=== PATIENT | male | born 1945 | race Caucasian/White ===

== ENCOUNTER 2016-07-16 19:54 | Inpatient (IN) | payer MEDICARE ==
[~2016-07-16] VITALS: Ht 180.3 cm; Wt 87.3 kg
[~2016-07-16 19:54] MED LIST: ALLO300T2 PO; ASPI-973 PO; ATOR40TA69 PO; Artificial Tears BOTH_EYES; BUPR100T15 PO; CLOP75TA28 PO; FLUO20CA25 PO; FUR20 PO; HYDR-3740 PO; LOSA25TA2 PO; METO25TA6 PO; TRAZ-118 PO
[2016-07-16 20:10] VITALS: BP 94/58; PULSE 74; RESP 20; O2SAT 90
[2016-07-16 20:22] LABS: BASOPHILS % (AUTO) 0.2 % (0-3); EOSINOPHILS % (AUTO) 0.6 % (0-5); MONOCYTES % (AUTO) 10.3 % (4-12); Mean Corpuscular Hemoglobin 29.9 pg (27.0-35.0); Mean Corpuscular Volume 94.8 fL (81-100); NEUTROPHILS % (AUTO) 80.6 % (40-74); Platelet Count 170 bil/L (150-400)
--- NOTE | 2016-07-16 20:32 | ED.REPORT ---
HPI-Dyspnea / Wheezing Date of Service Jul 16, 2016 ED Provider: Jose Angel Vazquez MD 71 year old male with a history of CHF, COPD, HTN, CAD and current smoker who presents to the ED via EMS due to increased malaise over the last 4 days. Symptoms include dizziness, fever, nausea, vomiting, cough with light brown sputum, nasal congestion, headache and chronic SOB. Pt denies CP. Nursing Notes Stated Complaint: LIGHTHEADED,SOB Chief Complaint: Respiratory Distress Nursing Notes Reviewed: Yes Allergies: Coded Allergies: No Known Allergies (Verified Allergy, Unknown, 04/23/15) Scheduled Allopurinol (Allopurinol) 300 Mg Tablet 300 MG PO DAILY Aspirin (Aspirin) 81 Mg Tablet 81 MG PO DAILY Atorvastatin Calcium (Atorvastatin Calcium) 40 Mg Tablet 40 MG PO HS Bupropion (Bupropion) 100 Mg Tablet 100 MG PO BID Clopidogrel (Clopidogrel) 75 Mg Tablet 75 MG PO DAILY Fluoxetine (Fluoxetine) 20 Mg Capsule 60 MG PO DAILY Furosemide (Furosemide) 20 Mg Tab 40 MG PO DAILY Hydrocodone-Acetaminophen 10-325 mg (Hydrocodone-Acetaminophen 10-325 mg) 1 Each Tablet 2 TABLET PO Q12HRS Losartan Potassium (Cozaar) 25 Mg Tablet 25 MG PO DAILY Metoprolol Tartrate (Metoprolol Tartrate) 25 Mg Tablet 25 MG PO BID Trazodone (Trazodone) 100 Mg Tablet 100 MG PO HS Scheduled PRN ([Artificial Tears]) 15 DROP/ML SOLUTION 1 DROP BOTH_EYES Q2H PRN PRN For Eye Irritation General Time Seen by MD: 20:31 Chief Complaint Other (Malaise) Hx Obtained From: Patient, EMS Arrived By: Ambulance Onset Occurred: 4 days ago Symptom Duration: Since onset Severity: Current: No pain currently Associated with: Reports: Cough, Fever, Nausea, Vomiting, Denies: Chest pain Pertinent Negative: Relieved by nothing Past Medical History Past Medical History Notes: Patient reports O+ blood type Past Medical History 1. Coronary artery disease: a. Coronary angiogram in April 2011: RCA obstruction with collateral flow, LVEF of 30%, LED obstruction 60% to 70%. b. Stress test in April 2003: Abnormal perfusion, partially reversible but predominantly fixed. Inferior and inferolateral defect consistent with previous transmural infarction with rayne-infarct ischemia. LVEF 56%. c. Echocardiogram in March 2002: LVEF of 60%, mild diastolic dysfunction. 2. Infrarenal abdominal aortic aneurysm, 5 cm, by CT scan from August 2011. 3. Polycythemia, attributed to smoking history. 4. Hyperlipidemia, hypertriglyceridemia. 5. History of elevated LFTs. 6. Hearing loss, mild to moderate, combined sensorineural. 7. PTSD. 8. Depression. 9. Alcohol dependence. 10. Nicotine dependence. 11. Possible obstructive sleep apnea. The patient declined workup in January 2005. 12. Right foot pain associated with trauma. 13. Psoriasis. 14. Chronic mild right shoulder impingement syndrome. 15. Chronic headache. 16. Chronic obstructive pulmonary disease. 17. Gout. 18. Chronic abdominal pain. 19. Ruptured aortic valve Past Surgical History 1. Bilateral carpal tunnel in 2000. 2. Left biceps repair after tearing, status post fall in 1991. 3. Bilateral cataract surgery. Smoking History Current Every Day Smoker (1/2 PPD) Social History Alcohol Use: "Social" Drug Use: Denies drug use Other Social History: Lives in [facility], Local resident Occupation Patient is a disabled Ambulatory Status Independent Review of Systems Basic Review of Systems Eyes: Vision NL, No discharge Neurologic: NL mental status Psychiatric: Normal thought content Constitutional: Denies: Fever Ears / Nose / Throat: Reports: Nasal congestion Respiratory: Reports: Prod cough, brown, Shortness of breath (chronic) Cardiovascular: Denies: Chest pain Skin: Denies Rash Complete sys rev & neg: except as marked. GI: Reports: Nausea, Vomiting, Denies: Abdominal pain Neurologic: Reports: Dizziness, Headache, Lightheaded Physical Exam Initial Vital Signs Vital Signs (First) Date Time Temp Pulse Resp B/P Pulse Ox O2 Delivery O2 Flow Rate FiO2 07/16/16 20:10 38.1 74 20 94/58 90 Nasal Cannula 2 Initial VS: Reviewed Head / Eyes: Atraumatic, Normocephalic, PERRL ENT: Conjunctiva normal, No scleral icterus Skin: Warm, Dry, No cyanosis Neurologic: Alert, Oriented, Nonfocal Psychiatric: Mood/affect normal, Behavior normal, Normal thought content General/Constitutional: Awake, Alert Neck: Supple, Full range of motion Respiratory / Chest: No respiratory distress Coarse breath sounds bilaterally Cardiovascular: Heart rate NL, Regular rhythm, Heart sounds NL, Peripheral circulation NL Abdomen: Soft, Non-tender, No guarding, No rebound Lower Extremity / Pelvis / MS: Full range of motion, No edema Interpretation & Diagnostics Lab Results Interpretation Result Diagram: 07/16/16201207/16/16 2013 Test 07/16/16 20:13 White Blood Count 9.9th/mm3 (3.8-10.1) Red Blood Count 4.85mil/mm3 (4.40-5.80) Hemoglobin 14.5g/dL (13.8-17.2) Hematocrit 46.0% (41.0-50.0) Mean Corpuscular Volume 94.8fL (81-100) Mean Corpuscular Hemoglobin 29.9pg (27.0-35.0) Mean Corpuscular Hemoglobin Concent 31.5% (32.0-37.0) Red Cell Distribution Width 16.4% (12.3-15.4) Platelet Count 170bil/L (150-400) Neutrophils (%) (Auto) 80.6% (40-74) Lymphocytes (%) (Auto) 8.0% (14-46) Monocytes (%) (Auto) 10.3% (4-12) Eosinophils (%) (Auto) 0.6% (0-5) Basophils (%) (Auto) 0.2% (0-3) Prothrombin Time 9.8sec (8.1-12.5) Prothromb Time International Ratio 0.92ratio Activated Partial Thromboplast Time 30.6sec (22.8-33.0) Sodium Level 135mEq/L (134-144) Potassium Level 4.4mEq/L (3.5-5.2) Chloride Level 97mEq/L (97-108) Carbon Dioxide Level 22mmol/L (18-29) Blood Urea Nitrogen 19mg/dL (8-27) Creatinine 1.22mg/dL (0.76-1.27) Estimat Glomerular Filtration Rate 62mL/min (>59) Glucose Level 103mg/dL (60-99) Calcium Level 8.7mg/dL (8.5-10.1) Magnesium Level 1.8mg/dL (1.6-2.6) Total Bilirubin 0.4mg/dL (0.0-1.2) Aspartate Amino Transf (AST/SGOT) 26U/L (0-50) Alanine Aminotransferase (ALT/SGPT) 17U/L (0-44) Alkaline Phosphatase 87U/L (25-160) Troponin T < 0.010ug/L (0.0-0.011) Pro-B-Type Natriuretic Peptide 1446pg/mL (0-376) Total Protein 7.2g/dL (6.4-8.4) Albumin 3.7g/dL (3.4-5.0) Lab Results Interpretation: Flu A positive General Lab Results Interp 1: Labs reviewed ECG Interpretation Time: 20:16 Interpreted by: ED physician Normal ECG Interpretation: Normal rate (73), Normal sinus rhythm, No acute ischemic changes X-Ray Chest Interpretation Chest Xray Interpretation: IMPRESSION: Chronic interstitial changes and increased pulmonary vascularity is present. Dictated by: Ca Bedolla M.D. on 07/16/2016 at 20:47 View: Portable, 1 view Interpretation / Wet Read by: Interpret - Radiologist Re-Eval/Medical Decision Med Decision/Clinical Course 71-year-old male history of CHF with EF 25%, COPD, smoker CAD, hypertension presenting complaining of cough and congestion, nausea and vomiting 5 days. Oxygen is 90% on room air. On review, patient's oxygen is normally high 90s to mid 90s on room air and previous visits. Requiring 2 L oxygen. Influenza positive. negative. Chest x-ray no acute. Patient will be admitted for influenza and hypoxemia. Tamiflu given here. Re-Evaluation/Progress : Time of Eval: 21:22 Re-Evaluation/Progress Note: CODE STATUS: Full Code Consultation : Referral / Consult Name: Jonah Sewell MD Consulted With: Hospitalist Call Returned at: 21:32 Real Estate Transaction Manager: Will see patient, Agrees with eval, Agrees with plan, Accepts admit Counseled Regarding: Diagnosis, Lab results, Need for admission Discharge & Departure Impression: Primary Impression: Influenza A Disposition: ADMITTED TO HOSPITAL Discharge Condition All VS Reviewed: Yes Referrals: Basil Cotto MD (PCP) Scribe Attestation Portions of this note were transcribed by Areli Wright. I, (Dr. Vazquez) personally performed the history, physical exam and medical decision-making; I reviewed and confirmed the accuracy of the information in the transcribed note. Signed by: Areli Wright. 07/16/2016, 3681 copies to: Basil Cotto MD, Ben M MD Jul 16, 2016 20:32 Areli Wright Jul 16, 2016 21:24
[2016-07-16 20:39] LABS: INR 0.92 ratio
--- NOTE | 2016-07-16 20:49 | DRSVH ---
PROCEDURE: X-RAY CHEST ONE VIEW, PORTABLE ([id number]) INDICATIONS: SHORTNESS OF BREATH TECHNIQUE: One view of the chest was acquired. COMPARISON: [facility], CR, XR CHEST 1VW (PORTABLE), 07/03/2015, 16:26. FINDINGS: Surgical changes and devices: None. Lungs and pleura: No pleural effusions or pneumothorax. Chronic interstitial changes and appearance of increased pulmonary vascularity is present. Mediastinum: Mediastinal contours appear normal. Heart size is normal. Bones and chest wall: No suspicious bony lesions. Overlying soft tissues appear unremarkable. IMPRESSION: Chronic interstitial changes and increased pulmonary vascularity is present. Dictated by: Ca Bedolla M.D. on 07/16/2016 at 20:47 Approved by: Ca Bedolla M.D. on 07/16/2016 at 20:47
[2016-07-16 20:59] VITALS: BP 88/74; PULSE 72; RESP 17; O2SAT 94
[2016-07-16 21:04] LABS: TROPONIN T < 0.010 ug/L (0.0-0.011)
[2016-07-16 21:22] VITALS: BP 99/64; PULSE 72; RESP 16; O2SAT 94
[2016-07-16] MEDS ORDERED: Polyethylene Glycol (PEG) 17 Gm Powder PO PRN (21:40)
[2016-07-16] MEDS ORDERED: Alum-Mag Hydrox-Simeth 30 mL Suspension PO PRN (21:40)
[2016-07-16 22:08] VITALS: BP 88/58; PULSE 71; RESP 21; O2SAT 93
[2016-07-16 22:21] VITALS: BP 88/58; PULSE 71; RESP 21; O2SAT 93
[2016-07-16 22:45] VITALS: BP 112/57; PULSE 74; RESP 18; O2SAT 95
[2016-07-17] VITALS (8 sets, daily range): BP systolic 116–175; BP diastolic 57–83; PULSE 66–77; RESP 18–20; O2SAT 91–99
[2016-07-17] MEDS: Heparin 5,000 Unit/mL Inj SUBQ SCH ×4 (01:21→23:46)
[2016-07-17] MEDS ORDERED: 0.9% Sodium Chloride 500 ML IV ONE ×2 (01:45→16:20)
[2016-07-17] MEDS ORDERED: 0.9% Sodium Chloride 1,000 ML IV SCH (01:45)
--- NOTE | 2016-07-17 02:02 | PCM.HPMED ---
Subjective Date of Service Jul 16, 2016 Primary Provider: Admitting Physician: Jonah Sewell MD Primary Care Physician: Basil Cotto MD Attending Physician: Jonah Sewell MD Chief Complaint: Shortness of breath with progressive cough, and lightheaded History of Present Illness: This 71-year-old pleasant gentleman with history of NYHA stage III CHF and ischemic cardiomyopathy, COPD, and hypertension who presents to the ED via EMS due to depressive symptoms of influenza. Patient states that 4 days ago he started having a upper respiratory infection with sinusitis and copious amounts of postnasal drainage with sneeze and cough. The cough has progressed and the patient now brings up copious amounts of gross sputum. He endorses dizziness, fever, nausea, vomiting, headache, chronic shortness of breath, but denies chest pain. Patient also attests to having diarrhea over the last couple of days and mild abdominal discomfort. Denies change in vision, no chest pain, or the review of symptoms. Patient does have a dry mouth as he has continued to take his diuretics while having diarrhea and vomiting. Patient is still currently smoking although he has been diagnosed with severe heart failure and COPD. He states that he is compliant with his medications as he lives [facility] and they are distributing his medications to him. Chest x-ray in the ED shows some pulmonary congestion and interstitial markings but does not identify a consolidation White count was 9.9, hemoglobin 14.5, hematocrit of 46, platelets of 170; neutrophil 80.6% Sodium is 135, potassium 4.4, chloride 97, bicarbonate 22, B1 19, creatinine 1.22, glucose 103, and magnesium was 1.8, LFTs are normal, troponin is negative , BNP is 1446 Review of Systems: All systems were reviewed; pertinent positives negative as per history of present illness, all other systems found to be negative Allergies Coded Allergies: No Known Allergies (Verified Allergy, Unknown, 04/23/15) Home Medications Allopurinol (Allopurinol) 300 Mg Tablet 300 MG PO DAILY Aspirin (Aspirin) 81 Mg Tablet 81 MG PO DAILY Atorvastatin Calcium (Atorvastatin Calcium) 40 Mg Tablet 40 MG PO HS Bupropion (Bupropion) 100 Mg Tablet 100 MG PO BID Clopidogrel (Clopidogrel) 75 Mg Tablet 75 MG PO DAILY Fluoxetine (Fluoxetine) 20 Mg Capsule 60 MG PO DAILY Furosemide (Furosemide) 20 Mg Tab 40 MG PO DAILY Hydrocodone-Acetaminophen 10-325 mg (Hydrocodone-Acetaminophen 10-325 mg) 1 Each Tablet 2 TABLET PO Q12HRS Losartan Potassium (Cozaar) 25 Mg Tablet 25 MG PO DAILY Metoprolol Tartrate (Metoprolol Tartrate) 25 Mg Tablet 25 MG PO BID Trazodone (Trazodone) 100 Mg Tablet 100 MG PO HS PMH 1. Coronary artery disease 2. Chronic systolic heart failure stage c class 3 with EF 30% 3. Infrarenal abdominal aortic aneurysm, 5 cm, by CT scan from August 2011. 4. Polycythemia, attributed to smoking history. 5. Hyperlipidemia, hypertriglyceridemia. 6. Hearing loss, mild to moderate, combined sensorineural. 7. PTSD. 8. Depression. 9. Alcohol dependence. 10. Nicotine dependence. 11. Possible obstructive sleep apnea. The patient declined workup in January 2005. 12. Right foot pain associated with trauma. 13. Psoriasis. 14. Chronic mild right shoulder impingement syndrome. 15. Chronic headache. 16. Chronic obstructive pulmonary disease. 17. Gout. 18. Chronic abdominal pain. 19. Ruptured aortic valve 20. Hx of elevated LFT's Surgical History 1. Bilateral carpal tunnel in 2000. 2. Left biceps repair after tearing, status post fall in 1991. 3. Bilateral cataract surgery. Family History Father at 50 of a heart attack Mother at 83 unknown cause Social History Hx Alcohol Use: Yes Hx Substance Use: No Hx Tobacco Use: Yes Smoking Status: Current Every Day Smoker Living Arrangement: Assisted Living ([facility]) Exam Vital Signs Vital Sign - Last Date Time Temp Pulse Resp B/P Pulse Ox O2 Delivery O2 Flow Rate FiO2 07/16/16 22:45 36.8 74 18 112/57 95 Nasal Cannula 3.00 Exam GEN: Patient resting comfortably in bed, suggesting an by nasal cannula HEENT: PERRLA, EOMI, membranes are dry, skin turgor decreased, no JVD noted although habitus preventing Cardio: Extremely difficult to auscultate, appears to be regular rate and rhythm Respiratory: Coarse breath sounds, inspiratory and expiratory wheezing in posterior and anterior, crackles heard at bases Abdomen: Positive bowel sounds, nontender, nondistended, no hepatomegaly, no pulsatile mass Extremities: No edema noted in lower extremities, no color change, very noticeable atrophy of lower extremities especially around the lower leg and foot bilaterally Psych: Healthy mood and affect Neuro: Cranial C3 10 intact, sensory intact bilaterally extremities, strength is greatly decreased in lower extremities Lab and Diagnostics Result Diagram: 07/16/16201207/16/162012 X-Rays, CTs and MRIs Chest x-ray IMPRESSION: Chronic interstitial changes and increased pulmonary vascularity is present. Dictated by: Ca Bedolla M.D. on 07/16/2016 at 20:47 Assessment & Plan Acute hypoxic respiratory failure -Patient presents with continuing worsening respiratory symptoms including cough and shortness of breath; he is not on oxygen at home as requiring 3 L nasal cannula -Maintain patient on O2 with goal of 88-92% as he is a COPD'er Confirmed influenza A -Flu screen entrance to the emergency department was positive for influenza A; mild fever on admission -Patient start on Tamiflu 75 mg oral twice a day -Sputum sample collected for evaluation COPD exacerbation - presents with copious amounts of sputum production and history of COPD due to long history and ongoing smoking - started on duo nebs every 4 while awake - start on azithromycin -t start on prednisone 40 mg by mouth for duration of 7 days -We will attempt to avoid over saturation of his O2 Chronic systolic heart failure with EF of 30% -Patient shows cephalization on chest x-ray, however, there is no JVD present and there is no lower extremity edema; the patient's mouth is also dry -Patient appears to be dehydrated and we will cautiously give him 1.5 L of normal saline; -1 L of normal saline at 250 mL per hour; 500 mL of normal saline at 100 mL per hour -Assess for fluid overload -Consider repeat of echo; last echo was in September 2015 Hypertension -Patient is currently hypotensive with maps floating in the 70s's line-we will hold on home medications for now Disposition: Patient is being admitted for observation expected length of stay less than 2 minutes. Pain Evaluation: Adequate Pain Control VTE Prophylaxis: Sub-Q Heparin (Unfractionated) Resuscitation Status: CPR: Attempt Resuscitation Attending Statement The patient was seen and examined together with Dr. Casarez on 07/16 and I agree with the history, exam and plan as outlined in the note above. Carloz Casarez DO Jul 17, 2016 00:16 Jonah Sewell MD Jul 17, 2016 06:00
[2016-07-17] MEDS: predniSONE 20 mg Tablet PO SCH (03:34)
[2016-07-17 03:47] LABS: BASOPHILS % (AUTO) 0.4 % (0-3); EOSINOPHILS % (AUTO) 0.7 % (0-5); MONOCYTES % (AUTO) 14.8 % (4-12); Mean Corpuscular Volume 95.1 fL (81-100); NEUTROPHILS % (AUTO) 70.6 % (40-74); Platelet Count 146 bil/L (150-400)
--- NOTE | 2016-07-17 05:54 | NUR ---
Admit Pt arrived to [facility] at 2228 via stretcher, pt communicates well and transferred self easily from stretcher to bed. Pt A&Ox3, oriented to bed, room and call light for safety. Pt has no complaints at this time and is breathing w/o labor or difficulty. Pt on droplet precautions r/t positive flu swab.
[2016-07-17] MEDS: Albuterol-Ipratropium 3 mL Inhalation Solution NEB SCH ×4 (06:00→21:00)
--- NOTE | 2016-07-17 14:33 | NUR ---
IMM given and explained to pt at bedside at 2:13 pm. Pt had no questions at this time. Copy provided to pt, original on hard chart. ADAN Leyva RN
--- NOTE | 2016-07-17 15:01 | NUR ---
Mentation patient is alert and oriented X3. able to make needs known. denies pain or discomfort at this time. intermittent cough noted. on droplet precautions for positive Flu. Katie flu for influenza. on Telemetry SR 77 per tele. uses urinal. 1 PA for toileting. bed side commode. lung sounds clear at the bases. denies shortness of breath or trouble breathing. no edema on bilateral lower extremities. stable vital signs. On continuous pulse oximetery. stable vital signs. call light with in reach for safety and verbalize the use of call light. history of falls. stable mood. continue to monitor.
--- NOTE | 2016-07-17 18:43 | NUR ---
Headache patient c/o headache/ forehead 02/05. chandler paged doctor and orders received for PRN Tylenol. PRN Tylenol given as ordered with effective results. patient is eating dinner at bed side.
--- NOTE | 2016-07-17 20:25 | PCM.PNMED ---
Subjective Date of Service Jul 17, 2016 Subjective Patient was seen and examined at bedside. Patient complains of shortness of breath but denies chest pain nausea, vomiting, diarrhea, and abdominal pain. Exam Vital Signs Vital Sign - Last Date Time Temp Pulse Resp B/P Pulse Ox O2 Delivery O2 Flow Rate FiO2 07/17/16 16:45 36.8 77 18 132/80 94 Nasal Cannula 1.50 Intake and Output 07/16/16 07/16/16 07/17/16 Cumulative From/Thru 15:00 23:00 07:00 07/16/16 20:10 - 07/17/16 06:45 Intake Total 1000 ml 585 ml 1585 ml Balance 1000 ml 585 ml 1585 ml Intake Oral 300 ml 300 ml IV Total 1000 ml 285 ml 1285 ml # Voids 1 1 # Bowel Movements 1 1 Exam Physical Exam: GEN: Patient was awake, alert, responding appropriately to questions HEENT: PERRLA, EOMI, Neck soft supple, trachea midline, nomocephalic/atraumatic CV: +S1/S2, RRR, no murmurs auscultated Respiratory: Positive wheezes were and rhonchi were noted with coarse breath sounds GI: +bowel sounds x4, soft, compressible, non TTP EXT: no c/c/e Neuro: CN II-XII grossly intact Psych: mood and affect were appropriate IVs and Medications Medications Reviewed: Medications were reviewed in detail Medications Current Medications Heparin Sodium (Porcine) 5,000 unit Q8 SUBQ Last administered on 07/17/16 16:47 ; Admin Dose 5,000 UNIT; Start 07/17/16 at 00:30 Al Hydrox/Mg Hydrox/Simethicone 30 ml Q6H PRN PO; Start 07/16/16 at 21:40 Senna 17.2 mg BID PRN PO; Start 07/16/16 at 21:40 Polyethylene Glycol 17 gm DAILY PRN PO; Start 07/16/16 at 21:40 Albuterol/ Ipratropium 3 ml 3 ml QIDWA NEB Last administered on 07/17/16t 15:22 ; Admin Dose 3 ML; Start 07/17/16 at 06:00 Sodium Chloride 1,000 ml @ 250 mls/hr Q4H IV; Start 07/17/16 at 01:45; Stop at 03:06; Status DC Prednisone 40 mg DAILY PO Last administered on 07/17/16 03:34; Admin Dose 40 MG ; Start 07/17/16 at 01:50; Stop 07/21/16 at 08:31 Azithromycin 250 mg DAILY PO; Start 07/18/16 at 08:30; Stop 07/18/16 at 08:30; Status DC Azithromycin 500 mg DAILY PO; Start 07/18/16 at 08:30; Stop 07/19/16 at 08:31 Oseltamivir Phosphate 30 mg BID PO Last administered on 07/17/16 08:24; Admin Dose 30 MG; Start 07/17/16 at 08:30; Stop 07/21/16 at 08:31 Acetaminophen 650 mg Q6H PRN PO Last administered on 07/17/16 17:50; Admin Dose 650 MG; Start 07/17/16 at 17:00 Lab and Diagnostics Result Diagram: 07/17/16 0313 07/17/16 0313 X-Rays, CTs and MRIs Chest x-ray IMPRESSION: Chronic interstitial changes and increased pulmonary vascularity is present. Dictated by: Ca Bedolla M.D. on 07/16/2016 at 20:47 Assessment & Plan 71-year-old male presents with dehydration and COPD exacerbation in the setting of influenza A. Acute hypoxic respiratory failure -Patient presents with continuing worsening respiratory symptoms including cough and shortness of breath; he is not on oxygen at home as requiring 3 L nasal cannula -Maintain patient on O2 with goal of 88-92% as he is a COPD'er Confirmed influenza A - continue Tamiflu - Follow up cultures COPD exacerbation - Continue azithromycin 500 mg daily - Continue prednisone 40 daily - Continue duo nebs 4 times a day - Continue oxygen as needed Dehydration - Continue gentle fluid resuscitation - Another 500 mL of IV fluid given today Chronic systolic heart failure with EF of 30% -Patient shows cephalization on chest x-ray, however, there is no JVD present and there is no lower extremity edema; the patient's mouth is also dry 1 L of normal saline at 250 mL per hour; 500 mL of normal saline at 100 mL per hour -Assess for fluid overload -Consider repeat of echo; last echo was in September 2015 Hypertension -Patient is currently stable - We will consider restarting patient's home blood pressure medications Disposition: Patient is currently progressing well. Patient states that he is feeling better compared to the day before. We will continue to monitor the patient as currently there is a fine line between balancing the patient's dehydration status and his CHF. We will continue supportive therapy for both a COPD exacerbation and the influenza A. We will continue to wean patient off of oxygen. VTE Prophylaxis: Sub-Q Heparin (Unfractionated) Resuscitation Status: CPR: Attempt Resuscitation Alix Kilpatrick DO Jul 17, 2016 20:25
--- NOTE | 2016-07-17 23:30 | NUR ---
activity patient prefers to rest. fatigued. answers questions with one word answers. alert and oriented x3 weaned off oxygen. room air 93%. cont pulse ox at bedside. given supportive care. care ongoing.
[2016-07-18] VITALS (7 sets, daily range): BP systolic 124–160; BP diastolic 72–88; PULSE 75–100; RESP 16–18; O2SAT 92–95
--- NOTE | 2016-07-18 06:46 | NUR ---
pain c/o headache. rated 5 given tylenol. now resting asleep.
[2016-07-18] MEDS: Albuterol-Ipratropium 3 mL Inhalation Solution NEB SCH ×3 (07:23→16:00)
[2016-07-18 08:49] LABS: Mean Corpuscular Hemoglobin 29.8 pg (27.0-35.0); Mean Corpuscular Volume 93.6 fL (81-100)
[2016-07-18] MEDS: predniSONE 20 mg Tablet PO SCH (09:49)
[2016-07-18] MEDS: Heparin 5,000 Unit/mL Inj SUBQ SCH ×2 (09:52→16:23)
--- NOTE | 2016-07-18 10:30 | NUR ---
Morning Rounds Staffed patient's case with Dr. Kilpatrick, case management and social work. I informed Dr. Kilpatrick that patient stated he would like to be discharged today and also made social work/case management aware that patient would need transportation. Dr. Kilpatrick stated she would assess patient and decide whether or not discharge is appropriate. Social Work stated patient would be seen regarding transportation.
--- NOTE | 2016-07-18 13:43 | NUR ---
Social Work Initial Assessment: SW met with patient at bedside to discuss discharge plan. Patient is a 71 year old male admitted on 07/16/16 for influenza and CHF. Patient payer as Medicare and [employer]. Patient PCP as MD Cotto. Patient states having no rat exterminator disability nor VA benefits. Patient states having no previous HHC or SNF history. Patient has a wheelchair at home for use. Patient states using a wheelchair at home. Patient states being a resident of [facility] and has resided at facility for 1 year. Patient states choice to return upon discharge. CARTER contacted [facility], [phone]. CARTER spoke to [facility] rep [employer] who was advised of discharge for today. Rep also aware of tamiflu start date on 07/17. Per [employer], rep requested updated clinical information. SW faxed. Per rep, facility unable to coordinate transfer back today as there is no available transport. CARTER spoke to patient who was made aware and requested contact to daughter Katarzyna, . CARTER contacted and left voice mail message for patient daughter regarding transport. SW to follow for transport back to [facility]. PLAN: Return back to [facility], pending clinical course Reshma ZEPEDA Addendum: 07/18/16 at 1349 by JONATHON MCMAHAN Amended: Links added. Addendum: 07/18/16 at 1640 by JONATHON HUIZAR SS CARTER arranged transport for pickling grader at 5pm via [employer], . Rep states that they to await until patient arrives at [facility] for payment as patient has no available funds nor family available to assist. CARTER faxed clinical information and discharge paperwork to [facility]. Patient in agreement. No other needs identified. Reshma ZEPEDA
--- NOTE | 2016-07-18 14:38 | PCM.DIMED ---
Discharge Instructions Date of Service Jul 18, 2016 Dates of Hospitalization Jul 16, 2016 at 22:15 Discharge Diagnosis Discharge Diagnosis Acute hypoxic respiratory failure secondar to influenza A COPD exacerbation Dehydration CHF Hypertension Diet Heart Healthy Activity Other (gradually return to normal activity as tolerated) Patient Instructions Follow-up with PCP in: 1 week (an appointment has already been made please schedule a follow-up appointment with your PCP) Alix Kilpatrick DO Jul 18, 2016 14:38
[2016-07-18] MEDS ORDERED: ZIT250 PO (14:40)
[2016-07-18] MEDS ORDERED: PRED-508 PO (14:40)
--- NOTE | 2016-07-18 14:53 | PCM.DC.MED ---
Discharge Summary Date of Service Jul 18, 2016 Dates of Hospitalization Date of Hospital Admission Jul 16, 2016 at 22:15 Date of Discharge: Jul 18, 2016 Providers: Admitting Physician: Jonah Sewell MD Primary Care Physician: Basil Cotto MD Attending Physician: Jonah Sewell MD Diagnosis at Time of Discharge Diagnosis at Time of Discharge Acute hypoxic respiratory failure secondary to influenza A, COPD exacerbation, Dehydration, CHF, Hypertension Procedures XRay, CTs & MRIs Chest x-ray IMPRESSION: Chronic interstitial changes and increased pulmonary vascularity is present. Dictated by: Ca Bedolla M.D. on 07/16/2016 at 20:47 Brief History 71-year-old male presents with dehydration and COPD exacerbation and acute respiratory failure in the setting of influenza A. Hospital Course This 71-year-old pleasant gentleman with history of NYHA stage III CHF and ischemic cardiomyopathy, COPD, and hypertension who presents to the ED via EMS due to depressive symptoms of influenza. Patient states that 4 days ago he started having a upper respiratory infection with sinusitis and copious amounts of postnasal drainage with sneeze and cough. The cough has progressed and the patient now brings up copious amounts of gross sputum. He endorses dizziness, fever, nausea, vomiting, headache, chronic shortness of breath, but denies chest pain. Patient also attests to having diarrhea over the last couple of days and mild abdominal discomfort. Denies change in vision, no chest pain, or the review of symptoms. Patient does have a dry mouth as he has continued to take his diuretics while having diarrhea and vomiting. Patient is still currently smoking although he has been diagnosed with severe heart failure and COPD. He states that he is compliant with his medications as he lives [facility] and they are distributing his medications to him. Chest x-ray in the ED shows some pulmonary congestion and interstitial markings but does not identify a consolidation White count was 9.9, hemoglobin 14.5, hematocrit of 46, platelets of 170; neutrophil 80.6% Sodium is 135, potassium 4.4, chloride 97, bicarbonate 22, B1 19, creatinine 1.22, glucose 103, and magnesium was 1.8, LFTs are normal, troponin is negative , BNP is 1446 Patient was immediately started on Zithromax 500 mg and 40 mg of prednisone daily, continued on DuoNeb's and oxygen. The patient responded faster than expected to treatment and recovered quickly. Patient's dehydration status was quickly resolved with IV fluids and his acute kidney injury was resolved patient 's creatinine on discharge was 1.01 which improved from previous day 1.48. The patient responded well to gentle hydration. This was a delicate balance that needed to be preserved as the patient does have a known history of CHF with an EF of 30%. This balance was able to be maintained as the patient did not have any signs of fluid overload throughout the course of the visit. Patient is now saturating at 90% and above on room air. Patient will be discharged home with home health services. Patient will be discharged home with home health and finish his course of azithromycin and prednisone for a full 5 day course. Exam Vital Signs (Last) Date Time Temp Pulse Resp B/P Pulse Ox O2 Delivery O2 Flow Rate FiO2 07/18/16 13:44 36.2 90 18 136/72 92 Room Air 07/17/16 16:45 1.50 Test 07/16/16 20:13 07/17/16 03:13 07/18/16 07:58 Prothrombin Time 9.8sec (8.1-12.5) Prothromb Time International Ratio 0.92ratio Activated Partial Thromboplast Time 30.6sec (22.8-33.0) Hemoglobin A1c 5.6% (4.8-5.6) Magnesium Level 1.8mg/dL (1.6-2.6) Troponin T < 0.010ug/L (0.0-0.011) Pro-B-Type Natriuretic Peptide 1446pg/mL (0-376) Procalcitonin 0.07ng/mL (See Comment) Neutrophils (%) (Auto) 70.6% (40-74) Lymphocytes (%) (Auto) 13.1% (14-46) Monocytes (%) (Auto) 14.8% (4-12) Eosinophils (%) (Auto) 0.7% (0-5) Basophils (%) (Auto) 0.4% (0-3) Lactic Acid Level 0.8mmol/L (0.4-2.0) White Blood Count 7.1th/mm3 (3.8-10.1) Red Blood Count 5.03mil/mm3 (4.40-5.80) Hemoglobin 15.0g/dL (13.8-17.2) Hematocrit 47.1% (41.0-50.0) Mean Corpuscular Volume 93.6fL (81-100) Mean Corpuscular Hemoglobin 29.8pg (27.0-35.0) Mean Corpuscular Hemoglobin Concent 31.8% (32.0-37.0) Red Cell Distribution Width 16.2% (12.3-15.4) Platelet Count 157bil/L (150-400) Sodium Level 140mEq/L (134-144) Potassium Level 4.2mEq/L (3.5-5.2) Chloride Level 102mEq/L (97-108) Carbon Dioxide Level 24mmol/L (18-29) Blood Urea Nitrogen 20mg/dL (8-27) Creatinine 1.01mg/dL (0.76-1.27) Estimat Glomerular Filtration Rate 77mL/min (>59) Glucose Level 94mg/dL (60-99) Calcium Level 8.8mg/dL (8.5-10.1) Total Bilirubin 0.4mg/dL (0.0-1.2) Aspartate Amino Transf (AST/SGOT) 21U/L (0-50) Alanine Aminotransferase (ALT/SGPT) 16U/L (0-44) Alkaline Phosphatase 83U/L (25-160) Total Protein 6.5g/dL (6.4-8.4) Albumin 3.8g/dL (3.4-5.0) Discharge Medications Discharge Medications Allopurinol (Allopurinol) 300 Mg Tablet 300 MG PO DAILY Prescribed by: STEPHANIE VELA MD Aspirin (Aspirin) 81 Mg Tablet 81 MG PO DAILY Prescribed by: STEPHANIE VELA MD Atorvastatin Calcium (Atorvastatin Calcium) 40 Mg Tablet 40 MG PO HS Prescribed by: STEPHANIE VELA MD Azithromycin (Zithromax) 250 Mg Tablet 500 MG PO DAILY Prescribed by: ALIX KILPATRICK DO Bupropion (Bupropion) 100 Mg Tablet 100 MG PO BID (Reported) Clopidogrel (Clopidogrel) 75 Mg Tablet 75 MG PO DAILY (Reported) Fluoxetine (Fluoxetine) 20 Mg Capsule 60 MG PO DAILY Prescribed by: STEPHANIE VELA MD Furosemide (Furosemide) 20 Mg Tab 40 MG PO DAILY Prescribed by: GEO PATRICK MD Hydrocodone-Acetaminophen 10-325 mg (Hydrocodone-Acetaminophen 10-325 mg) 1 Each Tablet 2 TABLET PO Q12HRS (Reported) Losartan Potassium (Cozaar) 25 Mg Tablet 25 MG PO DAILY Prescribed by: GEO PATRICK MD Metoprolol Tartrate (Metoprolol Tartrate) 25 Mg Tablet 25 MG PO BID Prescribed by: STEPHANIE VELA MD Prednisone (Deltasone) 20 Mg Tablet 40 MG PO DAILY Prescribed by: ALIX KILPATRICK DO Trazodone (Trazodone) 100 Mg Tablet 100 MG PO HS (Reported) As needed ([Artificial Tears]) 15 DROP/ML SOLUTION 1 DROP BOTH_EYES Q2H PRN PRN For Eye Irritation Prescribed by: GEO PATRICK MD Followup Plan Discharge Diet: Heart Healthy Discharge Activity: Other (gradually return to normal activity as tolerated) Follow-up with PCP in: 1 week (an appointment has already been made please schedule a follow-up appointment with your PCP) Time spent Greater than 30 minutes. Alix Kilpatrick DO Jul 18, 2016 14:53
--- NOTE | 2016-07-18 16:41 | NUR ---
Report to Anselmo Conway Called and spoke with Syl at [facility], gave report due to patient being discharged today.
--- NOTE | 2016-07-18 16:53 | NUR ---
Discharge Note Patient given all discharge instructions and information. IV discontinued intact at this time. Patient's belongings were gathered and bagged to go with him home. [employer] dressed patient. [employer] transporting patient via wheelchair to waiting taxi.
== END 2016-07-18 17:20 | disposition home health service (06) | DRG 189 ==
LOC: EDBD 19:54 → EDSEX 19:54 → SED 19:54 → OBSVTOIN 22:15 → MOC 22:15
PROVIDERS: ADMIT Hospitalist; ATTEND Hospitalist
DX: J96.01 Acute respiratory failure with hypoxia (principal); I50.22 Chronic systolic (congestive) heart failure; J44.1 Chronic obstructive pulmonary disease with (acute) exacerbation; N17.9 Acute kidney failure, unspecified; J10.1 Influenza due to other identified influenza virus with other respiratory manifestations; I25.10 Atherosclerotic heart disease of native coronary artery without angina pectoris; F17.210 Nicotine dependence, cigarettes, uncomplicated; I10 Essential (primary) hypertension; I25.5 Ischemic cardiomyopathy; E86.0 Dehydration; E78.5 Hyperlipidemia, unspecified; D75.1 Secondary polycythemia; F43.10 Post-traumatic stress disorder, unspecified; M10.9 Gout, unspecified; G89.29 Other chronic pain; Z79.82 Long term (current) use of aspirin